=== PATIENT | female | born 1970 | race African-American/Black ===

== ENCOUNTER 2022-03-21 17:49 | Emergency (ER) | payer MEDICAID, OTHER ==
[~2022-03-21] VITALS: Ht 165.1 cm; Wt 185.0 kg
[2022-03-21 21:34] LABS: BASOPHILS % 0.8 % (0.0-2.0); EOSINOPHILS % 1.5 % (0.0-5.0); HEMATOCRIT. 40.9 % (36.0-48.0); HEMOGLOBIN. 13.1 g/dL (12.0-16.0); LYMPHOCYTES % 14.8 % (20.0-50.0); MEAN CORPUSCULAR VOLUME 84.5 fL (81.0-99.0); MEAN PLATELET VOLUME 9.3 fl (7.4-10.4); MONOCYTES % 12.5 % (2.0-8.0); NEUTROPHILS % 70.4 % (40.0-76.0); PLATELET 178 x1000/uL (130-400); RED BLOOD CELL COUNT 4.84 mill/uL (4.2-5.4); RED CELL DISTRIBUTION WIDTH 20.9 % (11.6-14.6)
[2022-03-21 21:36] LABS: CHLORIDE 103 mEq/L (98-107)
[2022-03-21] MEDS ORDERED: BUMETANIDE 1MG/4ML VIAL IM ONE (22:00)
[2022-03-21 22:30] VITALS: BP 162/103
[2022-03-21] MEDS ORDERED: BUMETANIDE 1MG/4ML VIAL IM NR (22:39)
== END 2022-03-21 22:53 | disposition home or self-care (01) ==
LOC: ER 17:49
DX: I50.9 Heart failure, unspecified (principal); N18.9 Chronic kidney disease, unspecified; R03.0 Elevated blood-pressure reading, without diagnosis of hypertension
CPT/HCPCS: 36415; 80053; 83880; 85025; 96372; 99283; J3490